=== PATIENT | male | born 1955 | race Caucasian/White ===

== ENCOUNTER 2020-05-07 11:43 | Emergency (ER) | payer OTHER ==
[~2020-05-07] VITALS: Ht 188 cm; Wt 109.0 kg
[2020-05-07] MEDS ORDERED: VANCOMYCIN 1 G PREMIX 200 ML IV SCH (12:30)
[2020-05-07] MEDS ORDERED: PIPERACILLIN/TAZ 3.375G PREMIX 50 ML IV ONE (12:30)
[2020-05-07 12:48] LABS: BASOPHILS % 0.3 % (0.0-2.0); EOSINOPHILS % 2.5 % (0.0-5.0); HEMATOCRIT. 37.4 % (42.0-52.0); HEMOGLOBIN. 12.4 g/dL (14.0-18.0); LYMPHOCYTES % 20.3 % (20.0-50.0); MEAN CORPUSCULAR HEMOGLOBIN 29.3 pg (28.0-32.0); MONOCYTES % 8.2 % (2.0-8.0); NEUTROPHILS % 68.7 % (40.0-76.0); PLATELET 251 x1000/uL (130-400); RED BLOOD CELL COUNT 4.21 mill/uL (4.7-6.1); RED CELL DISTRIBUTION WIDTH 13.9 % (11.6-14.6)
[2020-05-07 12:55] LABS: CHLORIDE 109 mEq/L (98-107)
[2020-05-07 14:50] VITALS: BP 122/70
== END 2020-05-07 15:16 | disposition short-term general hospital (02) ==
LOC: ER 11:43
DX: E11.621 Type 2 diabetes mellitus with foot ulcer (principal); I10 Essential (primary) hypertension
CPT/HCPCS: 36415; 73630; 80048; 85025; 87040; 93005; 96365; 96375; 99285; J2543; J3370; Z7610

== ENCOUNTER 2020-11-18 09:17 | Emergency (ER) | payer OTHER ==
[~2020-11-18] VITALS: Ht 188 cm; Wt 115.0 kg
[2020-11-18] MEDS ORDERED: PIPERACILLIN/TAZ 3.375G PREMIX 50 ML IV ONE (11:30)
[2020-11-18 12:24] LABS: BASOPHILS % 0.3 % (0.0-2.0); EOSINOPHILS % 2.8 % (0.0-5.0); HEMATOCRIT. 38.8 % (42.0-52.0); HEMOGLOBIN. 13.2 g/dL (14.0-18.0); LYMPHOCYTES % 24.7 % (20.0-50.0); MEAN CORPUSCULAR HEMOGLOBIN 29.8 pg (28.0-32.0); MEAN CORPUSCULAR VOLUME 87.6 fL (80.0-94.0); MEAN PLATELET VOLUME 8.2 fl (7.4-10.4); MONOCYTES % 6.6 % (2.0-8.0); NEUTROPHILS % 65.6 % (40.0-76.0); PLATELET 180 x1000/uL (130-400); RED BLOOD CELL COUNT 4.44 mill/uL (4.7-6.1)
[2020-11-18 12:30] LABS: CHLORIDE 109 mEq/L (98-107)
[2020-11-18 12:43] LABS: PROTHROMBIN TIME 10.6 sec (9.6-11.0)
[2020-11-18 16:23] VITALS: BP 146/77
== END 2020-11-18 16:58 | disposition short-term general hospital (02) ==
LOC: ER 10:02
DX: E11.621 Type 2 diabetes mellitus with foot ulcer (principal); M14.672 Charcot's joint, left ankle and foot; Z20.822 Contact with and (suspected) exposure to COVID-19; Z89.422 Acquired absence of other left toe(s)
CPT/HCPCS: 36415; 71045; 73620; 80053; 85025; 85610; 87426; 93005; 96365; 96366; 99285; J2543; Z7610

== ENCOUNTER 2021-09-11 12:47 | Emergency (ER) | payer OTHER ==
[~2021-09-11] VITALS: Ht 188 cm; Wt 100.0 kg
[2021-09-11] MEDS ORDERED: VANCOMYCIN 1G PREMIX 200 ML IV ONE (14:45)
[2021-09-11] MEDS ORDERED: PIPERACILLIN/TAZ 3.375G PREMIX 50 ML IV ONE (14:45)
[2021-09-11 16:55] LABS: BASOPHILS % 0.2 % (0.0-2.0); HEMOGLOBIN. 12.4 g/dL (14.0-18.0); LYMPHOCYTES % 13.3 % (20.0-50.0); MEAN CORPUSCULAR HEMOGLOBIN 30.5 pg (28.0-32.0); MEAN CORPUSCULAR VOLUME 93.1 fL (80.0-94.0); MEAN PLATELET VOLUME 8.2 fl (7.4-10.4); MONOCYTES % 6.2 % (2.0-8.0); NEUTROPHILS % 78.3 % (40.0-76.0); PLATELET 218 x1000/uL (130-400); RED BLOOD CELL COUNT 4.08 mill/uL (4.7-6.1); RED CELL DISTRIBUTION WIDTH 14.2 % (11.6-14.6)
[2021-09-11 16:59] LABS: INR 1.4; PROTHROMBIN TIME 14.3 sec (9.6-11.0)
[2021-09-11] MEDS ORDERED: VANCOMYCIN 1GM PMX (XELLIA) 200 ML IV NR (17:00)
[2021-09-11 17:07] LABS: CHLORIDE 105 mEq/L (98-107)
[2021-09-11] MEDS ORDERED: SODIUM CHLORIDE 0.9% 1000ML BAG (SEPSIS BOLUS) IV ONE (18:30)
[2021-09-11 22:02] VITALS: BP 18/55
[2021-09-15] MEDS ORDERED: GLIM2TAB30 PO (18:50)
[2021-09-15] MEDS ORDERED: CEFU500T41 PO (18:50)
[2021-09-15] MEDS ORDERED: ASPI-864 MT (18:50)
[2021-09-15] MEDS ORDERED: FINA1TAB18 PO (18:50)
[2021-09-15] MEDS ORDERED: AMIO100T4 PO (18:50)
[2021-09-15] MEDS ORDERED: RIVA20TA PO (18:50)
[2021-09-15] MEDS ORDERED: INSU100V3 SUBCUT (18:50)
[2021-09-15] MEDS ORDERED: ATOR40TA70 PO (18:50)
[2021-09-15] MEDS ORDERED: DAPA5TAB MT (18:50)
[2021-09-15] MEDS ORDERED: INSNPH SUBCUT (18:50)
[2021-09-15] MEDS ORDERED: LOSA25TA26 MT (18:50)
[2021-09-15] MEDS ORDERED: METO-539 PO (18:50)
[2021-09-15] MEDS ORDERED: METF-416 MT (18:50)
[2021-09-17] MEDS ORDERED: AMI2 MT (15:04)
[2021-09-17] MEDS ORDERED: DAPA10TA MT (15:08)
[2021-09-17] MEDS ORDERED: GLIM4TAB36 MT (15:09)
[2021-09-17] MEDS ORDERED: INSNPH SUBCUT ×2 (15:20)
[2021-09-17] MEDS ORDERED: TOPXL5 MT (15:21)
[2021-09-17] MEDS ORDERED: SULF1TAB48 MT (15:32)
[2021-09-17] MEDS ORDERED: INSU100V3 SUBCUT ×2 (15:32)
[2021-09-17] MEDS ORDERED: CIPR-263 MT (15:33)
[2021-09-17] MEDS ORDERED: FINA5TAB11 MT (15:42)
[2021-09-17] MEDS ORDERED: SEMA2PEN SQ (15:47)
== END 2021-09-11 23:00 | disposition short-term general hospital (02) ==
LOC: ER 12:47 → CANBEDREQ 09-12 13:12
DX: A41.9 Sepsis, unspecified organism (principal); I89.1 Lymphangitis; M25.462 Effusion, left knee; E11.621 Type 2 diabetes mellitus with foot ulcer; R65.20 Severe sepsis without septic shock; Z20.822 Contact with and (suspected) exposure to COVID-19; I10 Essential (primary) hypertension; I48.91 Unspecified atrial fibrillation; Z79.4 Long term (current) use of insulin; Z79.01 Long term (current) use of anticoagulants; Z79.899 Other long term (current) drug therapy
CPT/HCPCS: 36415; 73562; 73590; 80053; 83605; 84145; 85025; 85610; 87040; 87426; 93971; 96361; 96365; 96366; 96368; 99291; J2543; J3370; J7030; Z7610

== ENCOUNTER 2022-04-07 16:17 | Inpatient (IN) | payer MEDICARE, OTHER ==
[~2022-04-07] VITALS: Ht 208.3 cm; Wt 102.5 kg
[2022-04-07] MEDS: INSULIN GLARGINE 100 UNITS/ML SUBCUT SCH (00:57)
[~2022-04-07 16:17] MED LIST: AMI2 MT; ASPI-864 MT; ATOR40TA70 PO; CIPR-263 MT; DAPA10TA MT; FINA5TAB11 MT; GLIM4TAB36 MT; INSNPH SUBCUT; INSU100V3 SUBCUT; METF-416 MT; RIVA20TA PO; SEMA2PEN SQ; SULF1TAB48 MT; TOPXL5 MT
[2022-04-07 21:04] LABS: INR 1.3
[2022-04-07 21:06] LABS: BASOPHILS % 0.2 % (0.0-2.0); HEMATOCRIT. 31.9 % (42.0-52.0); HEMOGLOBIN. 10.4 g/dL (14.0-18.0); LYMPHOCYTES % 13.2 % (20.0-50.0); MEAN CORPUSCULAR HEMOGLOBIN 28.4 pg (28.0-32.0); MEAN CORPUSCULAR VOLUME 86.9 fL (80.0-94.0); MEAN PLATELET VOLUME 7.7 fl (7.4-10.4); MONOCYTES % 6.6 % (2.0-8.0); PLATELET 306 x1000/uL (130-400); RED BLOOD CELL COUNT 3.67 mill/uL (4.7-6.1); RED CELL DISTRIBUTION WIDTH 16.4 % (11.6-14.6)
[2022-04-07 21:10] LABS: CHLORIDE 103 mEq/L (98-107)
[2022-04-07] MEDS ORDERED: DEXTROSE 50% WATER 50ML SYRINGE IV PRN (23:00)
[2022-04-07] MEDS ORDERED: ACETAMINOPHEN 325MG TABLET PO PRN ×2 (23:00)
[2022-04-07] MEDS ORDERED: ONDANSETRON HCL 4MG/2ML INJ IV PRN (23:00)
[2022-04-07] MEDS ORDERED: DIPHENHYDRAMINE 50MG/ML VIAL IV PRN (23:00)
[2022-04-07] MEDS ORDERED: DEXT 5%/0.45% NACL 1000ML 1,000 ML IV SCH (23:00)
[2022-04-07] MEDS ORDERED: HYDROCODONE/ACETAMINOPHEN 5/325MG TABLET PO PRN (23:00)
[2022-04-07] MEDS ORDERED: CEFEPIME 1,000 MG in DEXTROSE 5% WATER 50 ML IV SCH (23:00)
[2022-04-07] MEDS ORDERED: ZOLPIDEM TARTRATE 5MG TABLET PO PRN (23:00)
[2022-04-07] MEDS ORDERED: CLONIDINE 0.1MG TABLET PO PRN (23:00)
[2022-04-07] MEDS ORDERED: VANCOMYCIN 2,000 MG in DEXT 5% WATER 500 ML IV NR (23:30)
[2022-04-07] MEDS ORDERED: VANCOMYCIN 1G PREMIX 200 ML IV ONE (23:30)
[2022-04-08] MEDS: INSULIN LISPRO 100 UNITS/ML SUBCUT SCH ×4 (07:00→22:21)
[2022-04-08] MEDS: BLOOD SUGAR DIAGNOSTIC STRIP TEST SCH ×4 (07:11→21:00)
[2022-04-08] MEDS: METFORMIN HCL 500MG TABLET PO SCH ×2 (08:07→17:10)
[2022-04-08] MEDS: GLIPIZIDE XL 2.5MG TABLET PO SCH (08:08)
[2022-04-08] MEDS ORDERED: NALOXONE HCL 0.4MG/ML VIAL IV PRN (09:15)
[2022-04-08] MEDS: AMIODARONE HCL 200 MG TABLET PO SCH (10:43)
[2022-04-08] MEDS: METOPROLOL TARTRATE 25MG TABLET PO SCH ×2 (10:43→22:11)
[2022-04-08 11:27] VITALS: BP 142/83
[2022-04-08 12:00] VITALS: BP 132/62
[2022-04-08] MEDS: CEFEPIME 1,000 MG in DEXTROSE 5% WATER 50 ML IV SCH (13:25)
[2022-04-08] MEDS ORDERED: BUPIVACAINE HCL/PF 0.5% (5MG/ML) 10ML ONE (13:52)
[2022-04-08] MEDS ORDERED: LIDOCAINE HCL 1% 10 MG/ML 10ML VIAL ONE ×2 (13:52→14:28)
[2022-04-08] MEDS ORDERED: POLYMYXIN B SULFATE 500000 UNITS/VIAL ONE (13:54)
[2022-04-08] MEDS ORDERED: PROPOFOL 200MG/20ML VIAL IV ONE (14:29)
[2022-04-08] MEDS ORDERED: MIDAZOLAM HCL 2 MG/2 ML VIAL ONE (14:29)
[2022-04-08] MEDS ORDERED: FENTANYL CITRATE/PF 50MCG/ML 2ML VIAL ONE (14:29)
[2022-04-08] MEDS ORDERED: HYDROMORPHONE HCL/PF 2MG/ML CPJ IV PRN (14:45)
[2022-04-08] MEDS ORDERED: LABETALOL 5MG/ML SYR 20 MG/4 ML SYRINGE IV PRN (14:45)
[2022-04-08] MEDS ORDERED: MEPERIDINE HCL/PF 25MG/ML CPJ IV PRN (14:45)
[2022-04-08] MEDS ORDERED: ONDANSETRON HCL 4MG/2ML INJ IV PRN (14:45)
[2022-04-08 16:00] VITALS: BP 145/64
[2022-04-08] MEDS: INSULIN GLARGINE 100 UNITS/ML SUBCUT SCH (22:00)
[2022-04-08] MEDS: VANCOMYCIN 1.25GM PMX (XELLIA) 250 ML IV SCH (22:11)
[2022-04-09] MEDS: CEFEPIME 1,000 MG in DEXTROSE 5% WATER 50 ML IV SCH ×3 (00:57→21:45)
[2022-04-09] MEDS: BLOOD SUGAR DIAGNOSTIC STRIP TEST SCH ×4 (05:55→21:03)
[2022-04-09] MEDS: INSULIN LISPRO 100 UNITS/ML SUBCUT SCH ×4 (05:55→21:11)
[2022-04-09 06:36] LABS: BASOPHILS % 0.2 % (0.0-2.0); EOSINOPHILS % 2.5 % (0.0-5.0); HEMATOCRIT. 27.1 % (42.0-52.0); HEMOGLOBIN. 8.9 g/dL (14.0-18.0); MEAN CORPUSCULAR HEMOGLOBIN 28.4 pg (28.0-32.0); MEAN CORPUSCULAR VOLUME 86.9 fL (80.0-94.0); MEAN PLATELET VOLUME 7.7 fl (7.4-10.4); MONOCYTES % 6.7 % (2.0-8.0); NEUTROPHILS % 76.6 % (40.0-76.0); PLATELET 256 x1000/uL (130-400); RED BLOOD CELL COUNT 3.12 mill/uL (4.7-6.1); RED CELL DISTRIBUTION WIDTH 15.7 % (11.6-14.6)
[2022-04-09] MEDS: GLIPIZIDE XL 2.5MG TABLET PO SCH (07:10)
[2022-04-09] MEDS: METFORMIN HCL 500MG TABLET PO SCH ×3 (07:10→19:00)
[2022-04-09 08:00] VITALS: BP 113/50
[2022-04-09] MEDS: AMIODARONE HCL 200 MG TABLET PO SCH (09:34)
[2022-04-09] MEDS: METOPROLOL TARTRATE 25MG TABLET PO SCH ×2 (09:34→21:16)
[2022-04-09 12:00] VITALS: BP 100/37
[2022-04-09 16:00] VITALS: BP 114/75
[2022-04-09 20:00] VITALS: BP 124/58
[2022-04-09] MEDS ORDERED: SODIUM CHLORIDE 0.9% 100 ML IV ONE (21:00)
[2022-04-09] MEDS ORDERED: ENOXAPARIN 40MG/0.4ML SYR SUBCUT SCH (21:00)
[2022-04-09] MEDS: INSULIN GLARGINE 100 UNITS/ML SUBCUT SCH (21:12)
[2022-04-09] MEDS: VANCOMYCIN 1.25GM PMX (XELLIA) 250 ML IV SCH (21:45)
[2022-04-09] MEDS ORDERED: SODIUM CHLORIDE 0.9% 1,000 ML IV ONE (21:45)
[2022-04-10] VITALS: BP 139/59
[2022-04-10 04:00] VITALS: BP 125/50
[2022-04-10] MEDS: INSULIN LISPRO 100 UNITS/ML SUBCUT SCH ×3 (06:04→17:25)
[2022-04-10] MEDS: BLOOD SUGAR DIAGNOSTIC STRIP TEST SCH ×3 (06:04→16:55)
[2022-04-10] MEDS: GLIPIZIDE XL 2.5MG TABLET PO SCH (06:32)
[2022-04-10] MEDS: METFORMIN HCL 500MG TABLET PO SCH ×2 (06:32→17:18)
[2022-04-10 08:00] VITALS: BP 145/71
[2022-04-10] MEDS: METOPROLOL TARTRATE 25MG TABLET PO SCH (09:44)
[2022-04-10] MEDS: AMIODARONE HCL 200 MG TABLET PO SCH (09:44)
[2022-04-10] MEDS: CEFEPIME 1,000 MG in DEXTROSE 5% WATER 50 ML IV SCH (09:44)
[2022-04-10 12:00] VITALS: BP 148/70
[2022-04-10 16:00] VITALS: BP 134/60
[2022-04-10 16:24] VITALS: BP 144/65
== END 2022-04-10 17:38 | disposition home health service (06) | DRG 256 ==
LOC: ER 16:17 → MICUSO 23:22 → EDBEDREQTM 23:39 → EDBEDREQSVC 23:39 → EDBEDREQ 23:39 → 7EST 04-08 08:57
PROVIDERS: ADMIT Internal Medicine; ATTEND Internal Medicine
PROC: 0Y6V0Z0 Detachment at Right 4th Toe, Complete, Open Approach (ICD-10-PCS; principal; 2022-04-08)
PROC: 0Y9M00Z Drainage of Right Foot with Drainage Device, Open Approach (ICD-10-PCS; 2022-04-08)
DX: E11.52 Type 2 diabetes mellitus with diabetic peripheral angiopathy with gangrene (principal); I96 Gangrene, not elsewhere classified; L03.115 Cellulitis of right lower limb; E11.610 Type 2 diabetes mellitus with diabetic neuropathic arthropathy; E66.9 Obesity, unspecified; L03.031 Cellulitis of right toe; I10 Essential (primary) hypertension; Z68.23 Body mass index [BMI] 23.0-23.9, adult; E11.621 Type 2 diabetes mellitus with foot ulcer; L97.519 Non-pressure chronic ulcer of other part of right foot with unspecified severity; D64.9 Anemia, unspecified; I48.0 Paroxysmal atrial fibrillation; L97.529 Non-pressure chronic ulcer of other part of left foot with unspecified severity; Z79.4 Long term (current) use of insulin; Z83.3 Family history of diabetes mellitus
CPT/HCPCS: 36415; 73630; 80048; 80053; 82962; 83036; 84145; 85025; 86850; 86900; 87070; 87075; 88311; 93922; 97022; 97162; 97530; 99285; J0692; J1650; J1815; J2250; J2704; J3010; J3370; J3490; J7060

== ENCOUNTER → 2022-04-27 | Day surgery (SDC) | payer MEDICARE, OTHER ==
[~2022-04-27] MED LIST changes: +LIDOCAINE HCL 1% 10 MG/ML 10ML VIAL ONE
== END | disposition home or self-care (01) ==
LOC: RADANGIO 12:45
PROVIDERS: ATTEND Podiatrist Foot & Ankle Surgery
DX: Z45.2 Encounter for adjustment and management of vascular access device (principal); Z79.82 Long term (current) use of aspirin; Z79.84 Long term (current) use of oral hypoglycemic drugs; Z79.899 Other long term (current) drug therapy; Z98.890 Other specified postprocedural states; Z83.3 Family history of diabetes mellitus; Z72.89 Other problems related to lifestyle
CPT/HCPCS: 36573; 71045; C1725; C1751; C1769; J3490